=== PATIENT | female | born 1945 | race Caucasian/White ===

== ENCOUNTER 2016-10-20 14:34 | Emergency (ER) | payer OTHER ==
[2016-10-20] MEDS ORDERED: SODIUM BICARBONATE 7.5% IVP PRN (14:35)
[2016-10-20] MEDS ORDERED: ANECTINE ONE (14:40)
[2016-10-20] MEDS ORDERED: EPINEPHRINE 1:10,000 SYRINGE IV STA ×2 (14:48)
[2016-10-20] MEDS ORDERED: ANECTINE IVP STA (14:48)
[2016-10-20] MEDS ORDERED: ATROPINE SULFATE PFS IVP PRN (14:50)
[2016-10-20 14:54] VITALS: BP 75/63; TEMP 95.5; BMI 34.3
[2016-10-20] MEDS ORDERED: DEXTROSE 50%-WATER ABBOJECT IVP PRN (14:55)
[2016-10-20] MEDS: EPINEPHRINE 1:10,000 SYRINGE IV PRN ×3 (14:55→15:06)
[2016-10-20 15:06] LABS: BASOPHILS % (AUTO) 0.5 % (0.0-3.0); EOSINOPHILS # (AUTO) 0.2 K/ul (0.0-0.7); EOSINOPHILS % (AUTO) 2.5 % (0.0-7.0); HEMATOCRIT 28.7 % (37.0-47.0); HEMOGLOBIN 8.8 g/dl (12.0-16.0); IMMATURE GRANULOCYTE % (AUTO) 2.6 % (0.0-5.0); LYMPHOCYTES # (AUTO) 4.3 K/uL (0.60-3.4); LYMPHOCYTES % (AUTO) 53.8 (10.0-50.0); MEAN CORPUSCULAR HEMOGLOBIN 28.9 pg (27.0-31.0); MEAN CORPUSCULAR HGB CONC 30.7 (31.8-35.4); MEAN CORPUSCULAR VOLUME 94.1 fl (81.0-99.0); MONOCYTES # (AUTO) 0.5 K/uL (0.4-2.0); MONOCYTES % (AUTO) 5.6 (0-10); NEUTROPHILS # (AUTO) 2.8 K/ul (2.0-6.9); PLATELET COUNT 182 10^3/uL (140-440); RED BLOOD COUNT 3.05 10^6/ul (4.20-5.40); WHITE BLOOD COUNT 7.98 K/ul (4.6-10.2)
--- NOTE | 2016-10-20 15:16 | ED.PDOC ---
General ED Provider: Dr. 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 Denies: Gag reflex present Breathing Prehospital Findings: Reports: Apnea, Bradypnea Circulation/Rhythm Prehospital Findings: Reports: Asystole, [facility]A Disability/Neurological Prehospital Findings: Reports: Unresponsive Airway Prehospital Intervention: Reports: Chin lift, Jaw thrust Breathing Prehospital Intervention: Reports: Oxygen, Bag-valve mask Circulation/Rhythm Prehospital Intervention: Reports: Chest compressions, IV/IO placed (I/OPLACE MASTER CONTROL OPERATOR RIGHT LOWER LEG IN GOOD POSTION AND FUNCTION) Airway Prehospital Response: UNRESPONSIVE WITH BVM IN PROGRESS Circulation/Rhythm Prehospital Response: Present: Pulses present ( INTERMITTENTLY AFTER A FEW EPI INJECTION AND CPR BUT LOST INTERMITTENTLY ), Pulses absent, Asystole, PEA Airway ED Findings: Obstructed, Gag reflex absent (ONCE PULSES RETURN ANECTINE WAS INITATED 100MG IVP) Breathing ED Findings: Present: Bradypnea, Rales (WITH BVM) Circulation/Rhythm ED Findings: Present: Pulses absent, Asystole, PEA Disability/Neurological ED Findings: Present: Unresponsive Breathing ED Intervention: Oxygen, ETT replaced (ON ARRIVAL BY DORY CAPNOGRAPHY AND AUSCULTATION CONFIRME POSTION) Circulation/Rhythm ED Intervention: Chest compressions, Defibrillated (X1), IV/ IO placed, Epinephrine Breathing ED Response: Confirmed by auscultation, Confirmed by CO2 detector Circulation/Rhythm ED Response: Present: Pulses present, Pulses absent, Asystole , PEA Right Pupil: Fixed, Dilated Left Pupil: Fixed, Dilated Review Of Systems: Unable due to extremis EMS/Code Sheet Reviewed: Yes Patient is a DNR: No Resuscitation Successful: No Terminated At: 15:09 Differential Diagnoses: Asystole, Card. Rhythm Disturbance, Pulmonary Edema, PEA , Respiratory Failure, Sudden Quality Indicator For Non-Traumatic Chest Pain/Syncope: EKG Performed Past Medical History - Past Medical History Previously Healthy: No Endocrine: Reports: Hypothyroid, Dyslipidemia Cardiovascular: Reports: DE Respiratory: Reports: None Hematological: Reports: None Gastrointestinal: Reports: None Genitourinary: Reports: None Neuro/Psych: Reports: None Musculoskeletal: Reports: None Cancer: Reports: None Last Menstrual Period: unknown - Surgical History General Surgical History: Reports: CABG, Unknown - Family History Family History: Reports: Unknown - Social History Smoking Status: Former smoker Hx Substance Use: No Alcohol Screening: None Procedures - Intubation Indication: Present: Respiratory Insufficiency, Altered Mental Status Time of Intubation: 14:36 Medications: Yes: Succinylcholine Type of Tube Used: Endotracheal Cricoid Pressure Used: Yes Tube Ferrari Used: Yes Suction Used: Yes Glidescope Used: No CO2 Detector Used: Yes Lung Sounds Equal Bilaterally: Yes Intubation Complications: Present: Vomited Tube Placement Verified by X-ray: Yes (SPOKE TO RADIOLOGIST TUBE AT LEVEL OF TRACHEA ) Critical Care Note - Critical Care Note Total Time (mins): 0 Course - Course Hematology/Chemistry: 10/20/16 14:59 Orders, Labs, Meds: Lab Review 10/20/16 14:59 WBC 7.98 RBC 3.05 L Hgb 8.8 L Hct 28.7 L MCV 94.1 MCH 28.9 MCHC 30.7 L RDW Coeff of Shima 13.5 Plt Count 182 Immature Gran % (Auto) 2.6 Neut % (Auto) 35.0 Lymph % (Auto) 53.8 H Starke % (Auto) 5.6 Eos % (Auto) 2.5 Baso % (Auto) 0.5 Immature Gran # (Auto) 0.2 Neut # 2.8 Lymph # 4.3 H Starke # 0.5 Eos # 0.2 Baso # 0.0 Orders Category Date Time Status ABG DRAW REQUEST Stat CARDIO 10/20/16 14:49 Ordered EKG-(ED ONLY) Stat CARDIO 10/20/16 14:50 Ordered ED IV/MEDIPORT/POWERPORT .ONCE EMERGENCY 10/20/16 14:50 Ordered ABG Stat LAB 10/20/16 14:49 Ordered BLOOD CULTURE Stat LAB 10/20/16 14:47 Ordered CBC W/ AUTO DIFF Stat LAB 10/20/16 14:47 Ordered COMPREHENSIVE METABOLIC PANEL Stat LAB 10/20/16 14:47 Ordered CREATINE KINASE Stat LAB 10/20/16 14:47 Ordered LACTIC ACID Stat LAB 10/20/16 14:47 Ordered PARTIAL THROMBOPLASTIN TIME Stat LAB 10/20/16 14:50 Ordered PROCALCITONIN Stat LAB 10/20/16 Ordered PT WITH INR Stat LAB 10/20/16 14:50 Ordered TROPONIN I Stat LAB 10/20/16 14:47 Ordered 0.9 % Sodium Chloride [Saline Flush] MEDS 10/20/16 14:50 Ordered 1 syr IVF PRN PRN Epinephrine [Epinephrine 1:10,000 Syringe] MEDS 10/20/16 14:48 Stat 1 mg IV ONCE STA Epinephrine [Epinephrine 1:10,000 Syringe] MEDS 10/20/16 14:48 Stat 1 mg IV ONCE STA Succinylcholine Chloride [Anectine] MEDS 10/20/16 14:48 Stat 100 mg IVP ONCE STA Succinylcholine Chloride [Anectine] MEDS 10/20/16 14:40 Discontinued 20 mg .ROUTE .STK-MED ONE CHEST, 1V AP ONLY Stat RADS 10/20/16 14:47 Ordered Medications Generic Name Dose Route Start Last Admin Trade Name Freq PRN Reason Stop Dose Admin Sodium Chloride 1 syr 10/20/16 14:50 Saline Flush IVF PRN PRN To flush IV Discontinued Medications Generic Name Dose Route Start Last Admin Trade Name Freq PRN Reason Stop Dose Admin Epinephrine HCl 1 mg 10/20/16 14:48 Epinephrine 1:10,000 Syringe IV 10/20/16 14:49 ONCE STA Epinephrine HCl 1 mg 10/20/16 14:48 Epinephrine 1:10,000 Syringe IV 10/20/16 14:49 ONCE STA Succinylcholine Chloride 100 mg 10/20/16 14:48 Anectine IVP 10/20/16 14:49 ONCE STA Vital Signs: Temp Pulse Resp BP Pulse Ox 10/20/16 14:36 95.5 F L 0 L 0 L 75/63 L 0 L Departure - Departure Time of Disposition: 15:23 Disposition: Discharge Problem: Cardiac arrest Condition: Good Pt referred to PMD for follow-up: No Disposition Discussed With: Family
--- NOTE | 2016-10-20 15:18 | DI ---
EXAM: CHEST FRONTAL VIEW HISTORY: Intubated. Cardiopulmonary arrest. COMPARISON: None FINDINGS: There is an endotracheal tube present which appears to be to the right of the tracheal air column at the level of the mid-cervical spine but ends over the tracheal air column at the clavicular level. It is conceivable that the tracheal diameter is ectatic at the mid cervical level although visually assuring the tube is within the trachea is recommended. Heart size is within normal limits. There a re no pulmonary consolidations or evidence of pneumothorax. A nasogastric tube is not seen. IMPRESSION: Recommend checking placement of endotracheal tube as described. I called the ordering ph ysician Dr. Menard at 3:10 p.m. on 10/22/2016 and discussed these findings.
[2016-10-20 15:20] LABS: ABG PH 7.069 (7.35-7.45)
[2016-10-20 15:21] LABS: ABG BASE EXCESS -3 (-2.0-2.0); ABG HCO3 27.5 (22.0-26.0); ABG PCO2 95.3 mmHg (35-45); ABG TCO2 30 (22.0-28.0)
[2016-10-20 15:25] LABS: PARTIAL THROMBOPLASTIN TIME 26.1 SEC (23.9-40.0)
[2016-10-20 15:39] LABS: ALBUMIN 2.5 g/dL (3.4-5.0); ALBUMIN/GLOBULIN RATIO 0.83; ANION GAP 27.3; BILIRUBIN,TOTAL 0.23 mg/dL (0.00-1.20); BUN/CREATININE RATIO 16.49; CALCIUM 8.3 mg/dL (8.2-10.2); CREATININE 0.97 mg/dL (0.60-1.30); POTASSIUM 4.3 mmol/L (3.5-5.10); TOTAL PROTEIN 5.5 g/dL (5.8-8.1); TROPONIN I 0.084 ng/ml (0.0000-0.4000)
[2016-10-20 15:40] LABS: CREATINE KINASE MB 1.5 ng/ml (0.0-3.6)
[2016-10-20] MEDS ORDERED: CALCIUM CHLORIDE 10% IVP STA (15:41)
== END 2016-10-20 17:47 | disposition expired ==
LOC: ED 14:34
DX: I46.9 Cardiac arrest, cause unspecified (principal); E78.5 Hyperlipidemia, unspecified; E03.9 Hypothyroidism, unspecified; I25.2 Old myocardial infarction; Z95.1 Presence of aortocoronary bypass graft
CPT/HCPCS: 36415; 80053; 82550; 82553; 82803; 84145; 84484; 85025; 85610; 85730; 93005; 93010; 96361; 96374; 96375; 96376; 99284